=== PATIENT | female | born 1990 | race Two or more races ===

== ENCOUNTER 2022-08-07 09:15 | Inpatient (IN) | payer OTHER ==
[~2022-08-07] VITALS: Ht 162.6 cm; Wt 2.7 kg
[2022-08-09] MEDS ORDERED: PRIMACARE SOFT1 EACH PO (07:02)
[2022-08-12] MEDS ORDERED: IBUPROFEN800 MG PO (07:03)
[2022-08-12] MEDS ORDERED: FERROUS SULFAT325 MG PO (07:03)
== END 2022-08-12 11:28 | disposition home or self-care (01) | DRG 785 ==
LOC: EDSTATUS 09:15 → O/R 08-09 06:28 → OB/GYN 08-09 06:28 → LDR 08-09 09:15 → OB/GYN 08-09 14:00 → LDR 08-09 18:15 → OB/GYN 08-12 11:28
PROVIDERS: ADMIT Specialist; ATTEND Specialist
PROC: 4A1HXCZ Monitoring of Products of Conception, Cardiac Rate, External Approach (ICD-10-PCS; 2022-08-09)
PROC: 0UB70ZZ Excision of Bilateral Fallopian Tubes, Open Approach (ICD-10-PCS; 2022-08-09)
PROC: 10D00Z1 Extraction of Products of Conception, Low, Open Approach (ICD-10-PCS; principal; 2022-08-09 18:15)
DX: O34.211 Maternal care for low transverse scar from previous cesarean delivery (principal); Z3A.38 38 weeks gestation of pregnancy; Z37.0 Single live birth; Z20.822 Contact with and (suspected) exposure to COVID-19; Z30.2 Encounter for sterilization